=== PATIENT | male | born 1980 | race Caucasian/White ===

== ENCOUNTER → 2018-06-20 17:28 | Outpatient (CLI) | payer MEDICAID, SELFPAY ==
[2018-06-20 17:30] LABS: Mucous, Urine 0 SEEN /hpf (<or=2+); Red Blood Cells-Urine 0 SEEN /hpf (0-5); Squamous Epithelial Cells - UA 0 SEEN /hpf (0-5); White Blood Cells 0 SEEN /hpf (0-5)
[2018-06-20 19:02] LABS: Color, Urine Yellow (Yellow); Glucose, Dipstick Normal (Normal); Ketone-Dipstick Negative (Negative); Leukocyte Esterase-Dipstick Negative /ul (Negative); Nitrite-Dipstick Negative (Negative); Occult Blood-Urine Negative /ul (Negative); Protein-Dipstick Negative (Negative); Urine Bilirubin Dipstick Negative (Negative); Urine Urobilinogen Normal (Normal)
[2018-06-20 19:03] LABS: Urine Clarity Sl Cldy (Clear)
[2018-06-20 19:18] LABS: Amorphous Sediment 3+; Bacteria 4+ /hpf (None Seen)
[2018-06-20 21:46] LABS: Chlamydia Trachomatis by PCR Negative (Negative); Neisserai gonorrhoeae by PCR Negative (Negative); Probe Check PASS; Sample Adequacy Control PASS; Specimen Processing Control PASS
== END ==
PROVIDERS: Family Provider Family Medicine; PCP Family Medicine; Referring Provider Family Medicine; Visit Provider Family Medicine
DX: N45.1 Epididymitis (principal)
CPT/HCPCS: 81001; 87086; 87491; 87591

== ENCOUNTER → 2018-07-02 11:03 | Outpatient (CLI) | payer MEDICAID, SELFPAY ==
--- NOTE | 2018-07-02 11:08 | US_ITS ---
STUDY: SCROTUM ULTRASOUND REASON FOR EXAM: Male, 38 years old. Epididymitis. TECHNIQUE: Ultrasound evaluation of the scrotum was performed with color Doppler and static zhao-scale imaging. COMPARISON: None. FINDINGS: RIGHT TESTICLE INTRATESTICULAR: There is a normal size of the right testicle. The right testicle measures 4.1 x 2.9 x 1.9 cm. There is a homogenous echotexture. There is normal arterial and normal venous vascularity. There is no demonstrated right testicular mass or cyst. EXTRATESTICULAR: The epididymis is normal in size. The epididymis head measures 1.0 cm. There is normal vascularity of the epididymis. There is no demonstrated epididymal cystic structure. There is no demonstrated hydrocele. There is no demonstrated varicocele. There is no demonstrated extratesticular mass or cyst. LEFT TESTICLE INTRATESTICULAR: There is a normal size of the left testicle. The left testicle measures 4.0 x 2.5 x 1.9 cm. There is a homogenous echotexture. There is normal arterial and normal venous vascularity. There is no demonstrated left testicular mass or cyst. EXTRATESTICULAR: The epididymis is normal in size. The epididymis head measures 1.3 cm. There is increased (hyperemic) vascularity of the epididymis. The epididymis was extremely tender. It appears heterogeneous. There is no demonstrated epididymal cystic structure. There is no demonstrated hydrocele. There is no demonstrated varicocele. There is no demonstrated extratesticular mass or cyst. US/Testicular with Arterial Flow IMPRESSION: Normal bilateral testicles. Indirect finding suspicious for left epididymitis. Electronically Signed: Pramod Rodríguez MD at 21:31 EDT , Service support ,
== END ==
PROVIDERS: Family Provider Family Medicine; PCP Family Medicine; Referring Provider Family Medicine; Visit Provider Family Medicine
DX: N45.1 Epididymitis (principal)
CPT/HCPCS: 76870; 93976

== ENCOUNTER 2019-06-01 08:30 | Outpatient (RCR) | payer MEDICAID, SELFPAY ==
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
== END 2019-06-01 19:00 | disposition home or self-care (01) ==
LOC: PT 08:30
PROVIDERS: Family Provider Family Medicine; PCP Family Medicine
DX: S72.002D Fracture of unspecified part of neck of left femur, subsequent encounter for closed fracture with routine healing (principal)
CPT/HCPCS: 97110; 97116; 97140; 97163; 97165; 97530

== ENCOUNTER → 2019-06-23 08:43 | Outpatient (CLI) | payer MEDICAID, SELFPAY ==
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
== END ==
PROVIDERS: Family Provider Family Medicine; PCP Family Medicine; Referring Provider Family Medicine; Visit Provider Family Medicine
DX: M54.9 Dorsalgia, unspecified (principal)
CPT/HCPCS: 72110; 72202

== ENCOUNTER 2019-11-25 09:30 | Outpatient (RCR) | payer MEDICAID, SELFPAY ==
[2019-08-10 10:37] VITALS: BMI 25.0
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
--- NOTE | 2019-10-26 10:04 | HP.PTREVAL ---
BEAU BATISTA, It has been my pleasure to treat ARI PEREZ over the last 12 visits for L femur Fx. Please see the progress note below for an update on the physical therapy plan of care! Subjective: Pt reports he continues to be in a lot of pain Objective/Function: L leg pain is 4/10 currently, 9/10 at worst. L LE strength is 5/5 throughout. L knee ROM; 0-130. Pt is able to ascend and descend 10 steps using 2 handrails and negotiating them very slowly. Pt is able to ambulate 490 feet until having to sit down to rest secondary to fatigue Plan Plan: Continue to focus on funtional strengthening for improved stair negotiation and gait performance Goals Goal 1:: Decrease L LE pain x 50% to aid with IADL's Goal Time Frame: 4-6 Weeks Goal Progress: Progressing Goal 2:: Increase L LE strength x 1 grade to aid with stair negotiation Goal Time Frame: 4-6 Weeks Goal Progress: Progressing Goal 3:: Increase L knee ROM x 40 degrees to aid with restoring a more normal gait pattern Goal Time Frame: 4-6 Weeks Goal Progress: Goal Met Goal 4:: I with HEP Goal Time Frame: 4-6 Weeks Goal Progress: Progressing Goal 5:: Pt will be able to ambulate 1000 feet with LRD to aid with community ambulation. Goal Time Frame: 4-6 Weeks Goal Progress: Progressing Anticipated Interventions Patient/Client Instruction: Educate patient on: Condition, Plan of Care For the Purpose of:: To improve self management Therapeutic Exercise to Include: Strength training, Endurance training, Balance training, Flexibilty training, Gait and locomotor training, Active ROM For the Purpose of:: To decrease pain, To increase ROM, To improve muscle performance and motor function Cryotherapy (ice pack, ice massage): Yes For the Purpose of:: To decrease pain Please do not hesitate to contact me at [phone] by phone or if you have questions or concerns regarding this new plan of care! Sincerely, Zane Davidson, PT, ATC
--- NOTE | 2020-03-04 11:09 | HP.PT.NRP ---
ARI PEREZ was seen in my office for initial evaluation on 09/10/19. The following Plan of Care was established for this patient: Initial Frequency: 2x /Week Initial Duration: 6 Weeks Patient/Client Instruction: Educate patient on: Condition, Plan of Care For the Purpose of:: To improve self management Therapeutic Exercise to Include: Strength training, Endurance training, Balance training, Flexibilty training, Gait and locomotor training, Active ROM For the Purpose of:: To decrease pain, To increase ROM, To improve muscle performance and motor function Cryotherapy (ice pack, ice massage): Yes For the Purpose of:: To decrease pain This patient was last seen in our office . Pertinent comments regarding their Physical therapy will appear below: Pt was treated for 18 PT visits for L femur fracture through November 25, 2019. Pt has not returned through todays date and is discontinued at this time. At this point I will be discontinuing this patient from physical therapy. I would be happy to see this patient again in the future if found appropriate by the physician. Thank you! Zane Davidson, PT, ATC
== END 2019-11-25 19:00 | disposition home or self-care (01) ==
LOC: PT 09:30
PROVIDERS: Family Provider Family Medicine; PCP Family Medicine
DX: S72.352 Displaced comminuted fracture of shaft of left femur (principal)
CPT/HCPCS: 97110; 97140; 97161; 97164

== ENCOUNTER 2021-03-01 12:30 | Outpatient (RCR) | payer MEDICAID, SELFPAY ==
[2019-08-10 10:37] VITALS: BMI 25.0
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
--- NOTE | 2021-03-01 12:52 | HP.PTDCSUM ---
It has been my pleasure to treat ARI PEREZ referred by LAURA SANTOS, with the diagnosis of Chronic Lumbar Radiculopathy, L leg pain, Subjective weakness for a total of 13 visit(s). Discharge Date: 03/01/21 Please see the following information for a summary of their discharge status. Subjective: Pt reports he is no better because he has nerve damage and strengthening is not going to help that. The drugs that the Dr gave him has reduced the intensity of the nerve spasms but not the number of them. They just turn him into a zobie and will need a nap. RTD 6 days from now. Pt still uses both telles when going up and down the stairs. He takes longer to walk then his geriatric parents. He can keep up if he is in pain and walks like a duck. L Leg pain Pain Intensity (Out of 10): 3 L HS insertion pain Pain Intensity (Out of 10): 3 RLE Pain Intensity (Out of 10): 2 Lumbar spine Pain Intensity (Out of 10): 0 % Improvement: 0 Objective/Function: LE MMT: B hip flex 4+/5, B knee flex and knee ext 4+/5, B hip abd 4+/5. Stairs: walks up and down the stairs recip with 2 hand rails with hesitation ascending the stairs with his L leg and same with descending the stairs with some signs of eccentric weakness on the L. Gait: Walks with short stride and decreased stance time on the L LE with gait. Walks with hand on the L hip due to increase pain. Goal 1:: I HEP Goal Progress: Goal Met Goal 2:: Be able to go up and down the stairs recip with 1 hand rail without any signs of weakness or favorite his R LE Goal Progress: Not Progressing Goal 3:: Be able to walk at a faster pace than normal without pain with good gait mechanics Goal Progress: Not Progressing Goal 4:: Increase strength in L LE per subjective with functional activities such as stairs, squatting etc Goal Progress: Not Progressing Plan: DC PT to HEP Discharge Comments: DC PT back to Neurologist as pt is not making any improvements If there are questions or concerns regarding this patient's physical therapy, please feel free to call me at [phone]. Thank you for the referral of this patient. Sincerely, Stefanie Sy, MPT
== END 2021-03-01 19:00 | disposition home or self-care (01) ==
LOC: PT 12:30
PROVIDERS: PCP Family Medicine
DX: M54.16 Radiculopathy, lumbar region (principal); M79.605 Pain in left leg; R53.1 Weakness
CPT/HCPCS: 97113; 97162; 97530

== ENCOUNTER 2021-10-12 12:00 | Outpatient (RCR) | payer MEDICAID, SELFPAY ==
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
--- NOTE | 2021-09-07 13:35 | HP.PTREVAL_ITS ---
PIERCE DAI, It has been my pleasure to treat ARI PEREZ over the last 9 visits for LE Pain and Weakness. Please see the progress note below for an update on the physical therapy plan of care! Subjective: Patient reports that therapy has not improved his functional mobility. Today pain level is a 3/10. He is performing stretches at home and walking 6-8 miles every few days. Walks about a mile an hour-road walking-uses a walking stick. Goes Sep 12 to [place] [facility]. Objective/Function: Posture: FH, RS- can correct with verbal cues but does not maintain. Gait: antalgic- decrease stance time on the left LE with poor heel/toe due to pain. Transfers: sit to stand- slow and requires UE A. Stairs: asc/desc 8 recip with decreased control, significant use of NOLASCO bilaterally. HR/TR: able without UE A. SLS: 15 sec without loss of balance. ROM: WFL in all planes. Sensation: left LE hypersensitive to touch. Strength: Core: poor, Hip: Left: flexion: 37.8, abd: 43.0, add: 55.2 Right: flexion: 56.6, add: 39.9 abd: 59.9 Knee: left: flexion: 31.1 extn: 41.1 right: flexion:55.2 extn: 99.1. Flex: HS: severe, Gastroc: severe Plan Plan: Follow up with [facility] Balance/Gait/Functional tests - Balance/Special Test Scores Lower Extremity Functional Score: 41 TUG Test Time Seconds: 11.36 Tug Test: <20 sec.=mostly independent 30 Second Chair Rise Test Seconds: 3 Goals Goal 1:: Patient will be I with HEP and progression Goal Time Frame: 4-6 Weeks Goal Progress: Progressing Goal 2:: Patient will report no more than 5/10 pain for 1 week Goal Time Frame: 4-6 Weeks Goal Progress: Not Progressing Goal 3:: Patient will perform 10 sit to stands in 30 seconds Goal Time Frame: 4-6 Weeks Goal Progress: Not Progressing Goal 4:: Patient will asc/desc 8 stairs recip with good technique Goal Time Frame: 4-6 Weeks Goal Progress: Not Progressing Anticipated Interventions Patient/Client Instruction: Educate patient on: Benefits of Fitness Program Therapeutic Exercise to Include: Strength training, Endurance training, Balance training, Coordination, Agility training, Body mechanics, Postural training, Flexibilty training, Gait and locomotor training, Neuromotor development, Dynamic Lumbar Stabilization, Scapular Strength/Stabilization For the Purpose of:: To improve muscle performance and motor function Please do not hesitate to contact me at [phone] by phone or if you have questions or concerns regarding this new plan of care! Sincerely, EBEN SmithT
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
--- NOTE | 2021-09-27 15:02 | HP.PT.NRP ---
ARI PEREZ was seen in my office for initial evaluation on 07/26/21. The following Plan of Care was established for this patient: Initial Frequency: 3x /Week Initial Duration: 4 Weeks Patient/Client Instruction: Educate patient on: Benefits of Fitness Program Therapeutic Exercise to Include: Strength training, Endurance training, Balance training, Coordination, Agility training, Body mechanics, Postural training, Flexibilty training, Gait and locomotor training, Neuromotor development, Dynamic Lumbar Stabilization, Scapular Strength/Stabilization For the Purpose of:: To improve muscle performance and motor function This patient was last seen in our office . Pertinent comments regarding their Physical therapy will appear below: At this point I will be discontinuing this patient from physical therapy. I would be happy to see this patient again in the future if found appropriate by the physician. Thank you! Ivonne Anderson, [place] Balance/Gait/Functional tests - Balance/Special Test Scores Lower Extremity Functional Score: 41 TUG Test Time Seconds: 11.36 Tug Test: <20 sec.=mostly independent 30 Second Chair Rise Test Seconds: 3
--- NOTE | 2021-10-09 11:37 | HP.PT.NRP ---
ARI PEREZ was seen in my office for initial evaluation on 07/26/21. The following Plan of Care was established for this patient: Initial Frequency: 3x /Week Initial Duration: 4 Weeks Patient/Client Instruction: Educate patient on: Benefits of Fitness Program Therapeutic Exercise to Include: Strength training, Endurance training, Balance training, Coordination, Agility training, Body mechanics, Postural training, Flexibilty training, Gait and locomotor training, Neuromotor development, Dynamic Lumbar Stabilization, Scapular Strength/Stabilization For the Purpose of:: To improve muscle performance and motor function This patient was last seen in our office . Pertinent comments regarding their Physical therapy will appear below: Patient is going to pain mgmt in [place]- d/c at this time At this point I will be discontinuing this patient from physical therapy. I would be happy to see this patient again in the future if found appropriate by the physician. Thank you! Ivonne Anderson DPT Balance/Gait/Functional tests - Balance/Special Test Scores Lower Extremity Functional Score: 41 TUG Test Time Seconds: 11.36 Tug Test: <20 sec.=mostly independent 30 Second Chair Rise Test Seconds: 3
== END 2021-10-12 19:00 | disposition home or self-care (01) ==
LOC: PT 12:00
PROVIDERS: Visit Provider Nurse Practitioner
DX: M79.605 Pain in left leg (principal); M25.552 Pain in left hip; R29.898 Other symptoms and signs involving the musculoskeletal system
CPT/HCPCS: 97110; 97162; 97164